=== PATIENT | female | born 1990 | race Caucasian/White ===

== ENCOUNTER 2016-06-08 18:59 | Emergency (ER) | payer OTHER ==
[2016-06-08 19:10] VITALS: BP 102/61; PULSE 115; TEMP 100; BMI 21.1
--- NOTE | 2016-06-08 20:58 | PDOC ---
History of Present Illness - General Chief Complaint: Back Pain Stated Complaint: BACK PAIN/SORE THROAT Time Seen by Provider: 06/08/16 20:26 History Source: Patient Exam Limitations: No Limitations - History of Present Illness Initial Comments: 06/08/16 20:56 c/o pain - throat and back, fevers to 100.o, moist non productive cough. General body aches and malaise. States has been seen by specialist at [facility] it is being evaluated for rheumatology issues with a positive and a. Patient does not feel that that is related to these issues although has not felt well for a few weeks. Has used [id number] medications with minimal resolved. 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 06/08/16 22:52 Timing/Duration: unsure, 24 hours Severity: mild, moderate Associated Symptoms: reports: cough, fever/chills, headaches, loss of appetite, malaise Past History - Travel Traveled outside of the country in the last 30 days: No Close contact w/someone who was outside of country & ill: No - Past Medical History Allergies/Adverse Reactions: Allergies Allergy/AdvReac Type Severity Reaction Status Date / Time benzoyl peroxide Allergy Itching Verified 06/08/16 19:07 Home Medications: Ambulatory Orders Sulfamethoxazole/Trimethoprim [Bactrim Ds -] 1 tab PO BID #20 tablet 06/22/15 Oseltamivir Phosphate [Tamiflu -] 75 mg PO BID #10 capsule 06/08/16 Anemia: Yes - Psycho/Social/Smoking Cessation Hx Suicidal Ideation: No Smoking History: Never smoked Have you smoked in the past 12 months: No Hx Alcohol Use: No Drug/Substance Use Hx: No Substance Use Type: None Review of Systems - Review of Systems Able to Perform ROS?: Yes Is the patient limited Macanese proficient: Yes Constitutional: Yes: Symptoms Reported, Malaise HEENTM: Yes: Symptoms Reported Respiratory: Yes: Symptoms reported, See HPI, Cough, Wheezing : No: Symptoms Reported Musculoskeletal: Yes: Symptoms Reported, Muscle Pain, Muscle Weakness All Other Systems: Reviewed and Negative *Physical Exam - Vital Signs Last Vital Signs Temp Pulse Resp BP Pulse Ox 100 F H 115 H 20 102/61 99 06/08/16 19:07 06/08/16 19:07 06/08/16 19:07 06/08/16 19:07 06/08/16 19:07 - Physical Exam General Appearance: Yes: Nourished, Appropriately Dressed, Apparent Distress, Mild Distress HEENT: positive: GIULIANO, TMs Normal (congested but landmarks easily visualized), Pharyngeal Erythema, Nasal Congestion, Rhinorrhea. negative: Sinus Tenderness Neck: positive: Supple, Lymphadenopathy (R) (nontender), Lymphadenopathy (L). negative: Tender Respiratory/Chest: positive: Lungs Clear (course inspiratory and expiratory breath sounds). negative: Wheezing Cardiovascular: positive: Regular Rate Gastrointestinal/Abdominal: positive: Soft. 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 packer II-XII NML intact, Fully Oriented, Alert, Normal Mood/ Affect, Normal Response, Motor Strength 07/06 Medical Decision Making - Medical Decision Making 06/08/16 upper respiratory infection probable influenza, we'll treat with Tamiflu rest and have follow-up with PMD 06/08/16 22:54 *DC/Admit/Observation/Transfer Diagnosis at time of Disposition: Influenzal acute upper respiratory infection - Discharge Dispostion Disposition: HOME Condition at time of disposition: Stable Admit: No - Prescriptions Prescriptions: Oseltamivir Phosphate [Tamiflu -] 75 mg PO BID #10 capsule - Patient Instructions Printed Discharge Instructions: DI for Viral Upper Respiratory Infection -- Adult Additional Instructions: Rest, drink lots of fluids: Teas, water, soups, Pedialyte Saltwater gargles Steamy showers/seem to face break up mucus Old-fashioned treatments help! Avoid contact with others until fevers and cough resolved as this is very contagious Lots of handwashing and good hygiene Continue [id number] medications for symptomatic relief Tylenol or Motrin for fever and pain Take all of Tamiflu as directed: 1 tab every 12 hours for 5 days Followup with private physician in one to 2 days as needed or if worsening Return to emergency department for worsened symptoms, fevers, dehydration Influenza takes between 5 and 7 days for resolution To not participate in any activity, work, or school until fevers and cough are gone for at least one day - Post Discharge Activity Work/School Note: Back to Work
--- NOTE | 2016-06-08 20:59 | PDOC ---
History of Present Illness - General Chief Complaint: Back Pain Stated Complaint: BACK PAIN/SORE THROAT Time Seen by Provider: 06/08/16 20:26 History Source: Patient Exam Limitations: No Limitations - History of Present Illness Initial Comments: 06/08/16 21:02 Patient is here with complaints of high fevers, general body aches with back pain, moist nonproductive cough, sore throat pain. 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 Has had extensive workup for autoimmune diseases by [facility] as she has a positive AMA. But does not feel that this is related to same. Timing/Duration: reports: getting worse Severity: reports: mild, moderate Past History - Travel Traveled outside of the country in the last 30 days: No Close contact w/someone who was outside of country & ill: No - Past Medical History Allergies/Adverse Reactions: Allergies Allergy/AdvReac Type Severity Reaction Status Date / Time benzoyl peroxide Allergy Itching Verified 06/08/16 19:07 Home Medications: Ambulatory Orders Sulfamethoxazole/Trimethoprim [Bactrim Ds -] 1 tab PO BID #20 tablet 06/22/15 Oseltamivir Phosphate [Tamiflu -] 75 mg PO BID #10 capsule 06/08/16 Anemia: Yes - Psycho/Social/Smoking Cessation Hx Suicidal Ideation: No Smoking History: Never smoked Have you smoked in the past 12 months: No Hx Alcohol Use: No Drug/Substance Use Hx: No Substance Use Type: None Review of Systems - Review of Systems Able to Perform ROS?: Yes Is the patient limited Sammarinese proficient: Yes Constitutional: Yes: Symptoms Reported, See HPI, Chills, Fever, Loss of Appetite , Malaise HEENTM: Yes: Symptoms Reported, See HPI Respiratory: Yes: Symptoms reported, See HPI, Cough (non propductive ) ABD/GI: Yes: Symptoms Reported : No: Symptoms Reported Musculoskeletal: Yes: Symptoms Reported, See HPI, Back Pain All Other Systems: Reviewed and Negative *Physical Exam - Vital Signs Last Vital Signs Temp Pulse Resp BP Pulse Ox 100 F H 115 H 20 102/61 99 06/08/16 19:07 06/08/16 19:07 06/08/16 19:07 06/08/16 19:07 06/08/16 19:07 - Physical Exam General Appearance: Yes: Nourished, Appropriately Dressed, Apparent Distress HEENT: positive: GIULIANO, Normal ENT Inspection, TMs Normal, Pharynx Normal, Nasal Congestion, Rhinorrhea Neck: positive: Supple, Lymphadenopathy (R), Lymphadenopathy (L). negative: Tender Respiratory/Chest: positive: Lungs Clear. 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 Will treat with Tamiflu *DC/Admit/Observation/Transfer Diagnosis at time of Disposition: Influenzal acute upper respiratory infection - Discharge Dispostion Disposition: HOME Condition at time of disposition: Stable Admit: No - Patient Instructions Printed Discharge Instructions: DI for Viral Upper Respiratory Infection -- Adult Additional Instructions: Rest, drink lots of fluids: Teas, water, soups, Pedialyte Saltwater gargles Steamy showers/seem to face break up mucus Old-fashioned treatments help! Avoid contact with others until fevers and cough resolved as this is very contagious Lots of handwashing and good hygiene Continue [id number] medications for symptomatic relief Tylenol or Motrin for fever and pain Take all of Tamiflu as directed: 1 tab every 12 hours for 5 days Followup with private physician in one to 2 days as needed or if worsening Return to emergency department for worsened symptoms, fevers, dehydration Influenza takes between 5 and 7 days for resolution To not participate in any activity, work, or school until fevers and cough are gone for at least one day - Post Discharge Activity Work/School Note: Back to Work
[2016-06-08] MEDS ORDERED: IBUPROFEN 400 MG TABLET (FP) PO ONE (21:03)
== END 2016-06-08 21:04 | disposition home or self-care (01) ==
LOC: JERFT 18:59
DX: J11.1 Influenza due to unidentified influenza virus with other respiratory manifestations (principal)
CPT/HCPCS: 99281-25